=== PATIENT | male | born 1990 | race Caucasian/White ===

== ENCOUNTER 2017-05-05 20:30 | Emergency (ER) | payer BC, OTHER ==
--- NOTE | 2017-05-05 20:32 | PDOC ---
History of Present Illness - General History Source: Patient Exam Limitations: No Limitations - History of Present Illness Initial Comments: 05/05/17 20:41 The patient is a 26 year old male with no significant past medical history, who presents to the ED s/p fall. Patient was playing basketball when he fell wrong on his right foot and twisted it. Patient denies head trauma, back pain, neck pain. Denies taking any meds for pain. Patient denies losing consciousness. Denies fever, chills, nausea, vomiting. Patient is otherwise healthy and has no other complaints. PAST MEDICAL HISTORY: no significant history PAST SURGICAL HISTORY: no significant history FAMILY HISTORY: no pertinent history SOCIAL HISTORY: Pt lives with family and is employed. MEDICATIONS: reviewed ALLERGIES: As per nursing notes ROS General: No fevers or chills, no weakness, no weight loss HEENT: No change in vision. No sore throat,. No ear pain CardioVascular: No chest pain or shortness of breath Respiratory:No cough, or wheezing. Gastrointestinal: no nausea, vomiting, diarrhea or constipation, No rectal bleeding Genitourinary: No dysuria, hematuria, or frequency Musculoskeletal: + right foot pain. Neurologic: No headache, vertigo, dizziness or loss of consciousness Psychiatric: nor depression Skin: No rashes or easy bruising Endocrine: no increased thirst or abnormal weight change Allergic: no skin or latex allergy All other systems reviewed and normal PE GENERAL: The patient is awake, alert, and fully oriented, in no acute distress. HEAD: Normal with no signs of trauma. EYES: Pupils equal, round and reactive to light, extraocular movements intact, sclera anicteric, conjunctiva clear. EXTREMITIES: Pain and tenderness over the base of the fifth metatarsal. Neurovascular distal is intact. No tenderness on palpation of lateral malleolus. Normal range of motion, no edema. Rest of extremities is normal. NEUROLOGICAL: Normal speech, normal gait. PSYCH: Normal mood, normal affect. SKIN: Warm, Dry, normal turgor, no rashes or lesions noted. <Alcides Armendariz - Last Filed: 05/05/17 20:41> - General History Source: Patient Exam Limitations: No Limitations - History of Present Illness Initial Comments: 05/05/17 21:22 A portion of this note was documented by scribe services under my direction. I have reviewed the details of the note, within reason, and agree with the documentation. The case summary and management plan written by me. X-ray positive fracture base of fifth metatarsal Assessment and plan: This is a 26-year-old male who comes in post injuring his foot playing basketball. Patient has a fracture base of the fifth metatarsal He underwent an OCL splint was applied by Ju Patient given crutches and discharged home Patient given orthopedic follow-up. <Migue Serna I - Last Filed: 05/05/17 21:25> - General Chief Complaint: Injury Stated Complaint: INJURY TO RIGHT FOOT PLAYING BASKETBALL Time Seen by Provider: 05/05/17 20:32 Past History <Alcides Armendariz - Last Filed: 05/05/17 20:41> <Migue Serna I - Last Filed: 05/05/17 21:25> - Past Medical History Allergies/Adverse Reactions: Allergies Allergy/AdvReac Type Severity Reaction Status Date / Time No Known Allergies Allergy Verified 05/05/17 20:31 Home Medications: Ambulatory Orders NK [No Known Home Medication] 05/05/17 *Physical Exam - Vital Signs Last Vital Signs Temp Pulse Resp BP Pulse Ox 98.3 F 106 H 16 144/92 100 05/05/17 20:33 05/05/17 20:33 05/05/17 20:33 05/05/17 20:33 05/05/17 20:33 <Alcides Armendariz - Last Filed: 05/05/17 20:41> *DC/Admit/Observation/Transfer - Attestations Scribe Attestion: 05/05/17 20:42 Documentation prepared by Alcides Armendariz, acting as medical education manager for iMgue Serna MD. <Alcides Armendariz - Last Filed: 05/05/17 20:41> - Discharge Dispostion Admit: No <Migue Serna I - Last Filed: 05/05/17 21:25> Diagnosis at time of Disposition: Fracture of right foot Qualifiers: Encounter type: initial encounter Fracture type: closed Qualified Code(s): S92.901A - Unspecified fracture of right foot, initial encounter for closed fracture - Discharge Dispostion Disposition: HOME Condition at time of disposition: Stable - Patient Instructions Additional Instructions: Use your crutches for ambulation in tell you see the orthopedist. Leave the splint in place until you see the orthopedist. Call Dr. Hyde in the morning at [phone] for an appointment. Return to the emergency department immediately with ANY new, persistent or worsening symptoms. Continue any medications as previously prescribed by your physician. You should follow up with your primary doctor as soon as possible regarding today's emergency department visit. . Please make sure your doctor reviews the results of your emergency evaluation. Thank you for coming to the Emergency Department today for your care. It was a pleasure to see you today. Please note that your evaluation is INCOMPLETE until you follow-up with your doctor.
[2017-05-05 20:52] VITALS: BP 144/92; PULSE 106; TEMP 98.3; BMI 26.4
== END 2017-05-05 21:43 | disposition home or self-care (01) ==
LOC: FER 20:30
PROC: 2W3SX1Z Immobilization of Right Foot using Splint (ICD-10-PCS; principal; 2017-05-05)
DX: S92.901A Unspecified fracture of right foot, initial encounter for closed fracture (principal); X58.XXXA Exposure to other specified factors, initial encounter; Y93.67 Activity, basketball; Y92.310 Basketball court as the place of occurrence of the external cause; Y99.9 Unspecified external cause status
CPT/HCPCS: 73630-TC-RT; 99281-25